=== PATIENT | male | born 1990 | race Caucasian/White ===

== ENCOUNTER 2023-08-08 22:29 | Emergency (ER) | payer MEDICAID ==
[~2023-08-08] VITALS: Ht 180.3 cm; Wt 83.9 kg
[2023-08-09 01:20] VITALS: BP 133/70; TEMP 98.3; O2SAT 100
[2023-08-09] MEDS ORDERED: CLIN150C16 PO (02:46)
[2023-08-09] MEDS ORDERED: CLINDAMYCIN HCL 150 MG CAPSULE ONE (02:48)
[2023-08-09] MEDS: CLINDAMYCIN HCL 150 MG CAPSULE PO ONE (02:48)
== END 2023-08-09 03:00 | disposition home or self-care (01) ==
LOC: ER 22:46
DX: L60.0 Ingrowing nail (principal); Z79.899 Other long term (current) drug therapy